=== PATIENT | male | born 1950 | race Caucasian/White ===

== ENCOUNTER 2023-11-29 04:42 | Emergency (ER) | payer MEDICARE ==
[2023-11-29] MEDS ORDERED: Acetaminophen 500 MG TAB ONE (05:06)
== END 2023-11-29 05:24 | disposition home or self-care (01) ==
LOC: ERS 04:42
DX: M25.562 Pain in left knee (principal); M25.561 Pain in right knee; E11.9 Type 2 diabetes mellitus without complications; I10 Essential (primary) hypertension; Z55.6 Problems related to health literacy
CPT/HCPCS: 99283